=== PATIENT | male | born 2000 | race Caucasian/White ===

== ENCOUNTER 2021-05-20 22:39 | Emergency (ER) | payer BC ==
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
[2021-05-20] MEDS ORDERED: Acetaminophen 325 MG Tab PO ONE (23:19)
--- NOTE | 2021-05-21 07:28 | CR ---
Left tibia and fibula: AP and lateral views of the left tibia and fibula were obtained. Comparison: No previous study. Bone island is noted within the proximal medial tibial epiphysis. No acute fracture or other bony abnormality is appreciated. Impression: 1. Bone island as noted above. 2. Nothing acute is appreciated on two-view left tibia and fibula study. Diagnostic code #2
== END 2021-05-20 23:50 | disposition home or self-care (01) ==
LOC: JD.ED 22:39
DX: S80.12XA Contusion of left lower leg, initial encounter (principal); W23.0XXA Caught, crushed, jammed, or pinched between moving objects, initial encounter
CPT/HCPCS: 73590; 99283; A9270; 99282